=== PATIENT | female | born 1995 | race Two or more races ===

== ENCOUNTER 2016-10-03 01:31 | Emergency (ER) | payer SELFPAY ==
[~2016-10-03] VITALS: Ht 162.6 cm; Wt 72.6 kg
[2016-10-03 01:57] LABS: BASOPHILS % (AUTO) 0.3 % (0.0-2.0); EOSINOPHILS # (AUTO) 0.1 /CMM (0.0-0.7); EOSINOPHILS % (AUTO) 0.6 % (0.0-6.0); HEMATOCRIT 41 % (33-45); HEMOGLOBIN 13.9 g/dL (11.5-14.8); LYMPHOCYTES # (AUTO) 3.5 /CMM (0.8-4.8); LYMPHOCYTES % (AUTO) 27.4 % (20.0-44.0); MEAN CORPUSCULAR HEMOGLOBIN 31 PG (26.0-33.0); MEAN CORPUSCULAR HGB CONC 34 g/dl (31.0-36.0); MEAN CORPUSCULAR VOLUME 91 fL (82-100); MONOCYTES # (AUTO) 0.7 /CMM (0.1-1.30); MONOCYTES % (AUTO) 5.7 % (2.0-12.0); NEUTROPHILS # (AUTO) 8.6 /CMM (1.8-8.9); PLATELET COUNT (AUTO) 331 /CMM (150-450); RDW COEFFICIENT OF VARIATION 15.5 (11.5-15.0); RED BLOOD CELL COUNT(AUTO) 4.53 MIL/uL (4.0-5.2)
--- NOTE | 2016-10-03 02:00 | NUR ---
TO BED 5 A 21 YO FEMALE PT BIBA#[address]SE, PT C/O PASSING OUT AND HITTING HER HEAD, UNWITNESS. PATIENT DENIES NECK OR BACK PAIN. HOWEVER NOTED WITH ABRASIONS ON THE RIGHT CHEEK. VSS. NONDIAPHORETIC. PLACED ON CARDIAC AND VS MONITORING. AWAITING FOR ER MD BAUGH.
[2016-10-03 02:02] LABS: APPEARANCE,URINE CLEAR (CLEAR); BILIRUBIN,URINE NEGATIVE (NEGATIVE); BLOOD, URINE NEGATIVE Ery/uL (NEGATIVE); COLOR,URINE YELLOW (YELLOW); KETONES,URINE NEGATIVE (NEGATIVE); LEUKOCYTE ESTERASE ,URINE TRACE (NEGATIVE); NITRITE, URINE NEGATIVE (NEGATIVE); PH,URINE 5.5 (5.0-8.0); PROTEIN,URINE NEGATIVE (NEGATIVE); UGLUCOSE NEGATIVE (NEGATIVE); UROBILINOGEN,URINE 0.2 EU/dL (0.2)
--- NOTE | 2016-10-03 02:05 | NUR ---
ASSISTED PATIENT TO BATHROOM, URINE COLLECTED VIA CLEAN CATCH.
[2016-10-03 02:08] LABS: CARBON DIOXIDE 25 mmol/L (21-32); CHLORIDE 106 mmol/L (98-107); GLUCOSE 93 mg/dL (74-106); POTASSIUM 3.8 mmol/L (3.5-5.1); SODIUM SERUM 143 mmol/L (136-145); UREA NITROGEN, BLOOD 17 mg/dL (7-18)
[2016-10-03 02:08] LABS: BACTERIA,URINE None seen /HPF (None Seen); RBC,URINE NONE SEEN /HPF (0-2); SQUAMOUS EPITHELIAL CELL,UR Moderate /HPF (None Seen); WBC,URINE 0-2 /HPF (0-3)
[2016-10-03 02:09] LABS: PREGNANCY TEST URINE QUAL NEGATIVE (NEGATIVE)
[2016-10-03 02:14] LABS: ALANINE AMINOTRANSFERASE 20 U/L (12-78); ALBUMIN 4.1 g/dL (3.4-5.0); ALKALINE PHOSPHATASE 97 U/L (46-116); ASPARTATE AMINOTRANSFERASE 18 U/L (15-37); BILIRUBIN,DIRECT 0.1 mg/dL (0.0-0.2); BILIRUBIN,TOTAL 0.9 mg/dL (0.2-1.0); SALICYLATE 3.6 mg/dL (2.8-20.0); TOTAL PROTEIN, SERUM 7.8 g/dL (6.4-8.2)
[2016-10-03 02:15] LABS: ACETAMINOPHEN 0 ug/ml (10-30); ALCOHOL, BLOOD < 3 mg/dL (0-0)
--- NOTE | 2016-10-03 02:55 | NUR ---
started a saline lock on the left hand g18.
[2016-10-03] MEDS ORDERED: IV NS 0.9% 1,000 ML BAG IV ONE (03:00)
[2016-10-03] MEDS: IBUPROFEN 400 MG TABLET PO ONE ×2 (03:03→06:52)
--- NOTE | 2016-10-03 03:03 | NUR ---
PT UNABLE TO TAKE MOTRIN 400 MG DUE TO LOC
[2016-10-03] MEDS ORDERED: IBUPROFEN 400 MG TABLET ONE (06:24)
--- NOTE | 2016-10-03 06:45 | NUR ---
PT IS ABLE TO AWAKE WITH STIMULI. SPEAKS SLOWLY BUT IN COMPLETE SENTENCES. BILATERAL EYES VIBRATE DURING 8-POINT EYE EXAM. MOTRIN 800 MG GIVEN FOR HEADACHE PAIN OF 7/10. PT HAS UNSTEADY GAIT AT THIS TIME. PT WISHES TO GO BACK TO THE [facility] F[facility] WHEN DISCHARGED.
--- NOTE | 2016-10-03 07:01 | NUR ---
[facility] [id number] [place] [id number] [employer]
--- NOTE | 2016-10-03 08:21 | NUR ---
Patient discharged to home/accompanied by facility staff in stable condition. Written and verbal after care instructions given. Patient verbalizes understanding of instruction. Pt ambulatory with a steady gait.
[2016-10-03 08:24] VITALS: BP 110/68
== END 2016-10-03 08:25 | disposition home or self-care (01) ==
LOC: ER 01:33
DX: T42.4X1A Poisoning by benzodiazepines, accidental (unintentional), initial encounter (principal); F60.3 Borderline personality disorder; Y92.89 Other specified places as the place of occurrence of the external cause
CPT/HCPCS: 36415; 70450-TC; 80048-TC; 80076-TC; 80305; 81000-TC; 82962-TC; 84703-TC; 85025-TC; A4606; G0480; J7030; Z7610

== ENCOUNTER 2016-10-03 13:42 | Emergency (ER) | payer SELFPAY ==
[~2016-10-03] VITALS: Ht 172.7 cm; Wt 93.9 kg
--- NOTE | 2016-10-03 14:08 | NUR ---
[id number] FROM REHAB: S/P WITNESSED SEIZURE. BS IN FIELD 124. NOTED LETHARGIC. NO ORAL TRAUMA NOTED. VSS. SAFETY AND COMFORT MEASURES PROVIDED. WILL MONITOR.
--- NOTE | 2016-10-03 14:41 | NUR ---
RECEIVED A CALL FROM ALEC MATHIS FROM [facility] WHERE PT CAME FROM- , TO CALL THEM IF PT IS BEING DISCHARGED. NURSE REPORTED THAT PT WAS GIVEN THIS MORNING- 60MG PHENOBARBITAL, 10MG VALIUM, 50MG TOPAMAX, 20MG BACLOFEN, 800 GABAPENTIN AND 4MG SUBUTEX. PT FELL WHEN TRYING TO SMOKE OUTSIDE THEIR FACILITY, THEN SEIZED FOR 3 TIMES LASTING 8-15 SECONDS.
[2016-10-03] MEDS ORDERED: NALOXONE HCL 0.4 MG/ML AMPUL ONE (15:00)
[2016-10-03] MEDS ORDERED: ONDANSETRON HCL/PF 4 MG/2 ML VIAL ONE (15:00)
[2016-10-03] MEDS ORDERED: ONDANSETRON HCL/PF - ER 4 MG/2 ML VIAL IV ONE (15:00)
[2016-10-03] MEDS ORDERED: NALOXONE HCL 0.4 MG/ML AMPUL IV ONE (15:00)
[2016-10-03] MEDS ORDERED: IV NS 0.9% 1,000 ML BAG IV ONE (15:00)
[2016-10-03 15:07] LABS: BASOPHILS # (AUTO) 0.1 /CMM (0.0-0.2); BASOPHILS % (AUTO) 0.7 % (0.0-2.0); EOSINOPHILS # (AUTO) 0.2 /CMM (0.0-0.7); EOSINOPHILS % (AUTO) 1.3 % (0.0-6.0); HEMATOCRIT 38 % (33-45); HEMOGLOBIN 12.8 g/dL (11.5-14.8); LYMPHOCYTES # (AUTO) 3.1 /CMM (0.8-4.8); LYMPHOCYTES % (AUTO) 25.6 % (20.0-44.0); MEAN CORPUSCULAR HEMOGLOBIN 31 PG (26.0-33.0); MEAN CORPUSCULAR HGB CONC 34 g/dl (31.0-36.0); MEAN CORPUSCULAR VOLUME 92 fL (82-100); MONOCYTES # (AUTO) 0.8 /CMM (0.1-1.30); MONOCYTES % (AUTO) 6.6 % (2.0-12.0); NEUTROPHILS # (AUTO) 7.8 /CMM (1.8-8.9); NEUTROPHILS % (AUTO) 65.8 % (43.0-81.0); PLATELET COUNT (AUTO) 300 /CMM (150-450); RED BLOOD CELL COUNT(AUTO) 4.12 MIL/uL (4.0-5.2)
[2016-10-03 15:26] LABS: CALCIUM, SERUM 8.4 mg/dL (8.5-10.1); CARBON DIOXIDE 27 mmol/L (21-32); CHLORIDE 106 mmol/L (98-107); GLUCOSE 100 mg/dL (74-106); POTASSIUM 3.8 mmol/L (3.5-5.1); SODIUM SERUM 141 mmol/L (136-145); UREA NITROGEN, BLOOD 14 mg/dL (7-18)
[2016-10-03 15:30] LABS: ALANINE AMINOTRANSFERASE 14 U/L (12-78); ALBUMIN 3.5 g/dL (3.4-5.0); ALCOHOL, BLOOD < 3 mg/dL (0-0); ALKALINE PHOSPHATASE 87 U/L (46-116); ASPARTATE AMINOTRANSFERASE 17 U/L (15-37); BILIRUBIN,DIRECT 0.1 mg/dL (0.0-0.2); BILIRUBIN,TOTAL 0.8 mg/dL (0.2-1.0); TOTAL PROTEIN, SERUM 6.8 g/dL (6.4-8.2)
--- NOTE | 2016-10-03 18:17 | NUR ---
CALLED [facility] FOR [facility] SPOKE TO NAE AND WILL SEND FOR TECHNICAL INFORMATION SPECIALIST.
[2016-10-03 18:30] VITALS: BP 132/71
--- NOTE | 2016-10-03 19:07 | NUR ---
Patient discharged to home in stable condition. Written and verbal after care instructions given. Patient verbalizes understanding of instruction.IV removed. Catheter intact and site benign. Pressure and 4x4 applied to site. No bleeding noted. PT ambulatory with a steady gait VITAL SIGNS WITHIN NORMAL LIMITS.
== END 2016-10-03 19:08 | disposition home or self-care (01) ==
LOC: ER 13:43
DX: S00.81XA Abrasion of other part of head, initial encounter (principal); R51 Headache; W01.198A Fall on same level from slipping, tripping and stumbling with subsequent striking against other object, initial encounter; Y92.89 Other specified places as the place of occurrence of the external cause; Y93.89 Activity, other specified; Y99.8 Other external cause status
CPT/HCPCS: 36415; 70450-TC; 71010-TC; 80048-TC; 80076-TC; 80305; 85025-TC; A4606; G0480; J2310; J2405; J7030; Z7610